=== PATIENT | female | born 1945 | race Caucasian/White ===

== ENCOUNTER 2018-04-02 15:18 | Emergency (ER) | payer MEDICARE, OTHER ==
[2018-04-02 15:40] VITALS: TEMP 96.4
--- NOTE | 2018-04-02 16:19 | RAD ---
EXAM DESCRIPTION: Chest,2 Views CLINICAL HISTORY: weakness, sob, recent pna COMPARISON: None. FINDINGS: Two views of the chest are submitted. Cardiac silhouette appears normal. There is consolidation at each lung base with moderate bilateral pleural effusions. Bilateral breast implants are present. No upper lobe consolidation. IMPRESSION: Bilateral consolidations and effusions. Electronically signed by: Bhavesh Meraz 04/02/2018 4:18 PM CDT
[2018-04-02] MEDS ORDERED: SODIUM CHLORIDE 0.9% 1000ML 1,000 ML ONE (17:02)
[2018-04-02] MEDS ORDERED: SODIUM CHLORIDE 0.9% 1000ML 1,000 ML IVS ONE (17:05)
[2018-04-02] MEDS ORDERED: ACETYLCYSTEIN 20 % 6,000 MG/30 ML VIAL PO ONE (17:07)
--- NOTE | 2018-04-02 18:51 | CT ---
EXAM DESCRIPTION: CTA Chest CLINICAL HISTORY: 72 years, Female, possible pe COMPARISON: None TECHNIQUE: CT pulmonary angiography is performed with thin-section multi detector technique during rapid bolus administration of routine adult dose of nonionic iodinated IV contrast media. Multiplanar reformatted images are reviewed along with source images and maximum intensity projection reformatted multiplanar images. FINDINGS: Normal enhancement of pulmonary arteries. Large pulmonary arteries are consistent with pulmonary hypertension. Normal enhancement of cardiac chambers. Heart is large. There is coronary calcification. Early enhancement of the aorta is negative for aneurysm or dissection. Lung window images show bilateral lower lobe consolidation consistent with atelectasis or pneumonia. Bilateral hazy edema is seen around congested pulmonary vessels consistent with mild congestive failure or volume overload. No worrisome mass or nodule. Small to moderate bilateral pleural effusions are present. In the upper abdomen, upper abdominal viscera are unremarkable. No chest wall mass or rib fracture. No axillary or lower cervical adenopathy. Bilateral calcified breast implants. Coronal and sagittal reformatted MIP images confirm normal pulmonary arterial enhancement. IMPRESSION: Negative for evidence of pulmonary embolic disease. Moderate bilateral pleural effusions with bilateral lower lobe consolidation. Vascular congestion and cardiomegaly with mild pulmonary edema. This exam was performed according to our departmental dose-optimization program, which includes automated exposure control, adjustment of the mA and/or kV according to patient size and/or use of iterative reconstruction technique. Total DLP equals 486.87 mGycm. Electronically signed by: Norris De La Cruz MD 04/02/2018 6:50 PM CDT
[2018-04-02] MEDS ORDERED: levoFLOXacin 500 MG TAB PO ONE (19:37)
--- NOTE | 2018-04-02 19:41 | ED.PDOC ---
History of Present Illness - General Chief Complaint: Respiratory Problem Stated Complaint: Weakness, SOB Time Seen by Provider: 04/02/18 15:46 Source: patient Exam Limitations: no limitations - History of Present Illness Initial Comments: the patient is a 72-year-old female presenting to emergency room secondary to persistent shortness of breath and weakness. The patient had apparently been septic most likely from a urinary tract infection and had developed pulmonary infiltrates along with it. She had grown out Escherichia coli in her blood cultures which were targeted appropriately with oral antibiotics. She has been home from the hospital about 4 days but has not been getting up and getting around. Blood sugars have been poorly controlled. She is alert and oriented. She is in no acute distress. Vital signs are actually within normal limits. Blood sugars are in the mid 200s to 300s most of the time. She had been given steroids at the other hospital for the sepsis. Additionally she does have a small renal nodule that was found on the CT scan from the previous hospital that is of an uncertain source. She also has a 1.6 cm pulmonary nodule that was found at the previous hospital as well. She does have a cardiac history. The patient has not had any fevers. She is not really had a productive cough. Activity level has been very low. She is tilt positive by systolic blood pressure. Timing/Duration: unsure Severity: moderate Improving Factors: nothing Worsening Factors: nothing Associated Symptoms: malaise, shortness of breath, weakness Allergies/Adverse Reactions: Allergies NO KNOWN ALLERGY Allergy (Verified 04/02/18 15:48) Home Medications: Ambulatory Orders ALPRAZolam [Xanax] 0.5 mg PO TID PRN 04/02/18 Atorvastatin Calcium 40 mg PO DAILY 04/02/18 Carvedilol [Carvedilol] 3.125 mg PO BID 04/02/18 Clopidogrel Bisulfate [Plavix] 75 mg PO DAILY 04/02/18 Levothyroxine Sodium [Synthroid] 112 mcg PO DAILY 04/02/18 Meloxicam [Meloxicam] 15 mg PO DAILY 04/02/18 Progesterone Micronized [Progesterone] 200 mg PO DAILY 04/02/18 Spironolactone 25 mg PO DAILY #14 tab 04/02/18 Venlafaxine HCl [Effexor Tab] 75 mg PO DAILY 04/02/18 levoFLOXacin [Levaquin] 500 mg PO DAILY #10 tab 04/02/18 Review of Systems - Review of Systems Constitutional: States: malaise, weakness EENTM: States: no symptoms reported Respiratory: States: short of breath Cardiology: States: no symptoms reported Gastrointestinal/Abdominal: States: no symptoms reported Genitourinary: States: no symptoms reported Musculoskeletal: States: no symptoms reported Skin: States: no symptoms reported Neurological: States: weakness - generalized Endocrine: States: no symptoms reported All other Systems: No Change from Baseline Past Medical History (General) - Patient Medical History Hx Stroke: No Hx Cardiac Disorders: Yes - IL with stent placement Hx Congestive Heart Failure: No Hx Hypertension: Yes Hx Thyroid Disease: Yes - Frank's Hx Diabetes: Yes - Uses an insulin pump Hx MRSA: No - Vaccination History Hx Influenza Vaccination: No Hx Pneumococcal Vaccination: No - Social History Hx Tobacco Use: Yes - Quit "yrs" ago Family Medical History - Family History Mother Living Status: Hx Family;Other: Hx dementia Physical Exam - Physical Exam General Appearance: Alert, Frail, No apparent distress Eye Exam: bilateral normal Ears, Nose, Throat: normal ENT inspection, other - earing is chronically decreased Neck: full range of motion, supple Respiratory: chest non-tender, no respiratory distress, no accessory muscle use , other - she does have mild bibasilar Rales Cardiovascular/Chest: normal peripheral pulses, regular rate, rhythm, no edema Peripheral Pulses: radial,right: 2+, radial,left: 2+, dorsalis pedis,right: 2+, dorsalis pedis,left: 2+ Gastrointestinal/Abdominal: non tender, soft Rectal Exam: deferred Back Exam: normal inspection, no CVA tenderness, no vertebral tenderness Extremity: normal range of motion, non-tender, normal inspection, no pedal edema , no calf tenderness, normal capillary refill Neurologic: card scraper II-XII nml as tested, alert, normal mood/affect, oriented x 3 Skin Exam: pallor Comments: Vital Signs - 24 hr 04/02/18 04/02/18 04/02/18 15:38 16:37 17:37 Temperature 96.4 F L Pulse Rate [ 78 77 78 Left Radial] Respiratory 20 20 20 Rate Blood Pressure 151/85 140/69 142/74 [Left Arm] O2 Sat by Pulse 97 93 L 96 Oximetry 04/02/18 18:00 Temperature Pulse Rate [ 83 Left Radial] Respiratory 20 Rate Blood Pressure 123/73 [Left Arm] O2 Sat by Pulse 96 Oximetry Progress - Progress Progress: 04/02/18 19:45 the patient is a 72-year-old female presenting to the emergency room secondary to persistent shortness of breath and weakness after an episode of sepsis due to Escherichia coli most likely originating from the urinary tract. The patient does not appear to have any new infections that we have been able to find at this time. Vital signs are reassuring however she is mildly tilt positive with standing. Liver function tests have improved however her alkaline phosphatase is still mildly elevated and should be followed to a normal level in the future. White blood cell count is down to 18,000 from a peak of around 24,000, and should probably be rechecked next week as well. There is some evidence of mild congestive heart failure likely related to the recent sepsis. The patient also has some hypokalemia. Due to this, the patient is going to be started on spironolactone 25 mg daily for a period of a couple of weeks. She will need to have her potassium followed. She should also be set up with an echocardiogram within the next month for follow-up. The patient does have significant pleural effusions and the spironolactone will help to move some of that fluid off. Along the same line, she does need to take big deep breaths and make herself cough. She has been instructed to blow up balloons every few hours throughout the day to help reduce the atelectasis and reduce the effusions. Additionally the patient is severely deconditioned and she needs to start getting up and moving around more. It would be beneficial for her to stay with a friend for the next few days so she can get help when she needs it. CT angiogram of the chest showed no evidence of any pulmonary embolus. This was of concern due to the elevated liver function tests the congestive heart failure and a markedly elevated d-dimer. The patient did receive Mucomyst and IV fluids prior for renal protective purposes. Blood cultures have been done here today. The patient does have a renal nodule and a pulmonary nodule that will need follow-up in the future. I would recommend ultrasound for the renal nodule in 1-2 months and follow-up CT scan for the pulmonary nodule in 2-3 months. Additionally her TSH appears to be rising. She has informed me that she has recently changed her thyroid medication and this does need to be followed closely to make sure she is being adequately supplemented or this may worsen her congestive heart failure. Additionally the patient does need to maintain very tight blood sugar control to optimize her immune response. She can start taking a probiotic of her choice next week. VSL3 is a well studied one. Due to the pleural effusions and atelectasis as well as the fact that the renal nodule could possibly be a small abscess, I'm going to extend the patient's antibiotic coverage in the form of Levaquin 500 mg daily for the next 10 days. She does need to have a repeat urinalysis next week with her primary care doctor. cholesterol medication should be held while on the antibiotics. ER warnings were given for any worsening. - Results/Orders Results/Orders: Vital Signs - 24 hr 04/02/18 04/02/18 04/02/18 15:38 16:37 17:37 Temperature 96.4 F L Pulse Rate [ 78 77 78 Left Radial] Respiratory 20 20 20 Rate Blood Pressure 151/85 140/69 142/74 [Left Arm] O2 Sat by Pulse 97 93 L 96 Oximetry 04/02/18 18:00 Temperature Pulse Rate [ 83 Left Radial] Respiratory 20 Rate Blood Pressure 123/73 [Left Arm] O2 Sat by Pulse 96 Oximetry chest x-ray showed bilateral lower lobe infiltrates and effusions. CT angiogram of the chest with PE protocol showed no evidence of any pulmonary embolus. It does confirm the atelectasis and effusions. It also confirms some evidence of congestive heart failure. EKG shows left atrial dilation along with a right bundle branch block. Normal sinus rhythm. Borderline prolonged QT. Laboratory Results - last 24 hr 04/02/18 04/02/18 04/02/18 16:07 16:07 16:07 WBC 18.6 H RBC 4.45 Hgb 14.0 Hct 42.4 MCV 95.2 MCH 31.5 H MCHC 33.1 RDW 14.6 H Plt Count 463 H MPV 7.2 L Absolute Neuts (auto) Not Reportable Absolute Lymphs (auto) Not Reportable Absolute Monos (auto) Not Reportable Absolute Eos (auto) Not Reportable Neutrophils % Not Reportable Neutrophils % (Manual) 89.0 H Lymphocytes % Not Reportable Lymphocytes % (Manual) 7.0 Monocytes % Not Reportable Eosinophils % Not Reportable Basophils % Not Reportable Band Neutrophils 3.0 H Eosinophils 1.0 Platelet Estimate Normal D-Dimer, Quantitative 3.85 H* Sodium 138 Potassium 3.2 L Chloride 98 L Carbon Dioxide 30 Anion Gap 13.2 BUN 22 H Creatinine 1.20 BUN/Creatinine Ratio 18.3 Random Glucose 282 H Serum Osmolality 289.2 Lactic Acid Calcium 8.4 Total Bilirubin 0.5 AST 25 ALT 34 Alkaline Phosphatase 217 H Creatine Kinase 21 L CK-MB (CK-2) 2.1 Troponin I 0.03 B-Natriuretic Peptide 305.0 H* Serum Total Protein 7.0 Albumin 2.7 L Globulin 4.3 H Albumin/Globulin Ratio 0.6 L TSH 11.00 H Urine Color Urine Appearance Urine pH Ur Specific Lynch Urine Protein Urine Glucose (UA) Urine Ketones Urine Blood Urine Nitrite Urine Bilirubin Urine Urobilinogen Ur Leukocyte Esterase Urine RBC Urine WBC Ur Epithelial Cells Amorphous Sediment Urine Bacteria 04/02/18 04/02/18 16:07 Unknown WBC RBC Hgb Hct MCV MCH MCHC RDW Plt Count MPV Absolute Neuts (auto) Absolute Lymphs (auto) Absolute Monos (auto) Absolute Eos (auto) Neutrophils % Neutrophils % (Manual) Lymphocytes % Lymphocytes % (Manual) Monocytes % Eosinophils % Basophils % Band Neutrophils Eosinophils Platelet Estimate D-Dimer, Quantitative Sodium Potassium Chloride Carbon Dioxide Anion Gap BUN Creatinine BUN/Creatinine Ratio Random Glucose Serum Osmolality Lactic Acid 2.2 Calcium Total Bilirubin AST ALT Alkaline Phosphatase Creatine Kinase CK-MB (CK-2) Troponin I B-Natriuretic Peptide Serum Total Protein Albumin Globulin Albumin/Globulin Ratio TSH Urine Color Yellow Urine Appearance Clear Urine pH 7.0 Ur Specific Lynch 1.010 Urine Protein Negative Urine Glucose (UA) 500 H Urine Ketones Negative Urine Blood Moderate H Urine Nitrite Negative Urine Bilirubin Negative Urine Urobilinogen 1.0 Ur Leukocyte Esterase Small H Urine RBC 3-5 H Urine WBC 3-5 H Ur Epithelial Cells 1-3 Amorphous Sediment 1+ Urine Bacteria 0 Departure - Departure Clinical Impression: D-dimer, elevated, Hypokalemia, Physical deconditioning, Atelectasis Congestive heart failure Qualifiers: Heart failure type: unspecified Heart failure chronicity: acute Qualified Code( s): I50.9 - Heart failure, unspecified Disposition: Discharge to Home or Self Care Condition: Fair Departure Forms: ED Discharge - Pt. Copy, Patient Portal Self Enrollment Diet: diabetic diet Activity: increase activity as tolerated Prescriptions: levoFLOXacin [Levaquin] 500 mg PO DAILY #10 tab Spironolactone 25 mg PO DAILY #14 tab Home Medications: Ambulatory Orders ALPRAZolam [Xanax] 0.5 mg PO TID PRN 04/02/18 Atorvastatin Calcium 40 mg PO DAILY 04/02/18 Carvedilol [Carvedilol] 3.125 mg PO BID 04/02/18 Clopidogrel Bisulfate [Plavix] 75 mg PO DAILY 04/02/18 Levothyroxine Sodium [Synthroid] 112 mcg PO DAILY 04/02/18 Meloxicam [Meloxicam] 15 mg PO DAILY 04/02/18 Progesterone Micronized [Progesterone] 200 mg PO DAILY 04/02/18 Spironolactone 25 mg PO DAILY #14 tab 04/02/18 Venlafaxine HCl [Effexor Tab] 75 mg PO DAILY 04/02/18 levoFLOXacin [Levaquin] 500 mg PO DAILY #10 tab 04/02/18 Additional Instructions: the patient is a 72-year-old female presenting to the emergency room secondary to persistent shortness of breath and weakness after an episode of sepsis due to Escherichia coli most likely originating from the urinary tract. The patient does not appear to have any new infections that we have been able to find at this time. Vital signs are reassuring however she is mildly tilt positive with standing. Liver function tests have improved however her alkaline phosphatase is still mildly elevated and should be followed to a normal level in the future. White blood cell count is down to 18,000 from a peak of around 24,000, and should probably be rechecked next week as well. There is some evidence of mild congestive heart failure likely related to the recent sepsis. The patient also has some hypokalemia. Due to this, the patient is going to be started on spironolactone 25 mg daily for a period of a couple of weeks. She will need to have her potassium followed. She should also be set up with an echocardiogram within the next month for follow-up. The patient does have significant pleural effusions and the spironolactone will help to move some of that fluid off. Along the same line, she does need to take big deep breaths and make herself cough. She has been instructed to blow up balloons every few hours throughout the day to help reduce the atelectasis and reduce the effusions. Additionally the patient is severely deconditioned and she needs to start getting up and moving around more. It would be beneficial for her to stay with a friend for the next few days so she can get help when she needs it. CT angiogram of the chest showed no evidence of any pulmonary embolus. This was of concern due to the elevated liver function tests the congestive heart failure and a markedly elevated d-dimer. The patient did receive Mucomyst and IV fluids prior for renal protective purposes. Blood cultures have been done here today. The patient does have a renal nodule and a pulmonary nodule that will need follow-up in the future. I would recommend ultrasound for the renal nodule in 1-2 months and follow-up CT scan for the pulmonary nodule in 2-3 months. Additionally her TSH appears to be rising. She has informed me that she has recently changed her thyroid medication and this does need to be followed closely to make sure she is being adequately supplemented or this may worsen her congestive heart failure. Additionally the patient does need to maintain very tight blood sugar control to optimize her immune response. She can start taking a probiotic of her choice next week. VSL3 is a well studied one. Due to the pleural effusions and atelectasis as well as the fact that the renal nodule could possibly be a small abscess, I'm going to extend the patient's antibiotic coverage in the form of Levaquin 500 mg daily for the next 10 days. She does need to have a repeat urinalysis next week with her primary care doctor. cholesterol medication should be held while on the antibiotics. ER warnings were given for any worsening.
[2018-04-02] MEDS ORDERED: POTASSIUM CHLORIDE ELIXIR 20 MEQ/15 ML UD PO ONE (19:56)
[2018-04-02 20:22] VITALS: BP 152/98; O2SAT 95
== END 2018-04-02 20:22 | disposition home or self-care (01) ==
LOC: ER 15:18
DX: I50.9 Heart failure, unspecified (principal); R79.89 Other specified abnormal findings of blood chemistry; E87.6 Hypokalemia; J98.11 Atelectasis; I45.10 Unspecified right bundle-branch block; I11.0 Hypertensive heart disease with heart failure; I25.2 Old myocardial infarction; E06.3 Autoimmune thyroiditis; E11.9 Type 2 diabetes mellitus without complications; Z79.4 Long term (current) use of insulin; Z95.5 Presence of coronary angioplasty implant and graft; Z79.899 Other long term (current) drug therapy; Z87.891 Personal history of nicotine dependence
CPT/HCPCS: 36415; 71046; 71275; 80053; 81001; 82550; 82553; 83605; 83880; 84443; 84484; 85025; 85379; 87040; 87086; 93005; J7030